=== PATIENT | female | born 1970 | race African-American/Black ===

== ENCOUNTER 2016-06-17 09:18 | Emergency (ER) | payer OTHER ==
[~2016-06-17 09:18] MED LIST: ASA5GR PO; HYDROCHLOROT25 MG OR; IRON325 MG PO; KLOR-CON M2020 MEQ PO; L40 PO; LOP25 PO; MICRO-K10 MEQ PO; PRIN10 PO; REMERON45 MG PO; SEROQUEL25 PO; [UNRECOGNIZED DRUG - OTHER] OR
== END 2016-06-17 11:00 | disposition home or self-care (01) ==
LOC: ER 09:18
DX: G47.00 Insomnia, unspecified (principal); I10 Essential (primary) hypertension; Z87.891 Personal history of nicotine dependence; Z88.5 Allergy status to narcotic agent; Z79.82 Long term (current) use of aspirin; Z79.899 Other long term (current) drug therapy
CPT/HCPCS: 93005; 99283

== ENCOUNTER 2016-06-18 08:45 | Emergency (ER) | payer OTHER ==
[2016-06-18 10:28] LABS: BASOPHILS 0.3 %; BASOPHILS ABSOLUTE 0.02 10/3/uL (0.0-0.16); EOSINOPHILS 3.4 %; ER CBC TAT 0 Hrs 08 Mins; HEMATOCRIT 40.8 % (36.0-48.0); HEMOGLOBIN 13.6 g/dL (12.0-16.0); IMMATURE GRANULOCYTES 0.2 %; IMMATURE GRANULOCYTES ABSOLUTE 0.01 10/3/uL (0.0-0.11); LYMPHOCYTES 42.1 %; LYMPHOCYTES ABSOLUTE 2.46 10/3/uL (0.67-4.30); MEAN CORPUS HGB CONC 33.3 g/dL (32.0-36.0); MEAN CORPUSCULAR HEMOGLOB 30.4 pg (26.0-34.0); MEAN CORPUSCULAR VOLUME 91.1 fL (80-100); MONOCYTES 6.8 %; NEUTROPHILS 47.2 %; NEUTROPHILS ABSOLUTE 2.76 10/3/uL (2.02-8.40); PLATELET COUNT 306 10/3/uL (150-400); RBC DISTRIBUTION WIDTH 12.8 % (12.0-16.0); RED CELL COUNT 4.48 10/6/uL (4.0-5.6); WHITE BLOOD CELLS 5.9 10/3/uL (4.5-10.5)
[2016-06-18 10:30] LABS: MANUAL DIFF NO %
[2016-06-18 10:43] LABS: A/G RATIO 0.8 (0.7-1.9); ALBUMIN 3.5 G/DL (3.5-5.0); ALKALINE PHOSPHATASE 98 U/L (45-117); BUN (BLOOD UREA NITROGEN) 12 MG/DL (6-23); CALCIUM, SERUM 9.4 MG/DL (8.5-10.4); CHLORIDE, SERUM 104 MMOL/L (96-112); CO2 (CARBON DIOXIDE) 32 MMOL/L (24-34); CREATININE 0.78 MG/DL (0.55-1.02); GFR AFRICAN AMERICAN 105 ML/MIN (>=60); GFR NON AFRICAN AMERICAN 91 ML/MIN (>=60); GLOBULIN 4.5 G/DL (2.5-4.1); GLUCOSE, SERUM 100 MG/DL (60-99); POTASSIUM, SERUM 3.9 MMOL/L (3.5-5.3); SGOT(AST) 12 U/L (5-40); SGPT(ALT) 23 U/L (5-65); SODIUM, SERUM 141 MMOL/L (135-148); TOTAL BILIRUBIN 0.4 MG/DL (0-1.2)
[2016-06-18 11:00] LABS: INFLUENZA A SCREEN NEGATIVE (NEGATIVE); INFLUENZA B SCREEN NEGATIVE (NEGATIVE)
[2016-06-18 13:33] LABS: ASCORBIC ACID (UR NOT ORDER) 20 (NEG); BILIRUBIN, URINE NEGATIVE (NEG); ER URINALYSIS TAT 0 Hrs 00 Mins; KETONE, URINE NEGATIVE (NEG); LEUKOCYTE ESTERASE(NOT OR SMALL (NEG); NITRITE (URINE) NEG (NEG); WBC (NOT ORDERED) (RFLEX) 28 (0-5)
== END 2016-06-18 13:24 | disposition home or self-care (01) ==
LOC: ER 08:45
PROVIDERS: Emergency Medicine
DX: R53.1 Weakness (principal); B34.9 Viral infection, unspecified; E11.9 Type 2 diabetes mellitus without complications; N30.90 Cystitis, unspecified without hematuria; I10 Essential (primary) hypertension; F41.9 Anxiety disorder, unspecified; F32.9 Major depressive disorder, single episode, unspecified; Z88.5 Allergy status to narcotic agent; Z79.82 Long term (current) use of aspirin; Z79.899 Other long term (current) drug therapy
CPT/HCPCS: 71010; 80053; 81001; 82962; 85025; 87070; 87077; 87086; 87186; 87804; 87880; 99285; J2405

== ENCOUNTER 2016-06-29 09:29 | Emergency (ER) | payer OTHER | END 2016-06-29 10:54 | disposition home or self-care (01) | LOC: ER 09:29 | DX: S46.912A Strain of unspecified muscle, fascia and tendon at shoulder and upper arm level, left arm, initial encounter (principal); I10 Essential (primary) hypertension; F20.9 Schizophrenia, unspecified; E11.9 Type 2 diabetes mellitus without complications; Z88.5 Allergy status to narcotic agent; Z79.82 Long term (current) use of aspirin; Z79.899 Other long term (current) drug therapy; X50.0XXA Overexertion from strenuous movement or load, initial encounter | CPT/HCPCS: 99283 ==

== ENCOUNTER 2016-07-01 08:44 | Emergency (ER) | payer OTHER ==
[2016-07-01 11:04] LABS: BASOPHILS 0.6 %; BASOPHILS ABSOLUTE 0.04 10/3/uL (0.0-0.16); EOSINOPHILS 3.5 %; EOSINOPHILS ABSOLUTE 0.25 10/3/uL (0.0-0.53); HEMATOCRIT 39.8 % (36.0-48.0); HEMOGLOBIN 13.1 g/dL (12.0-16.0); IMMATURE GRANULOCYTES 0.1 %; IMMATURE GRANULOCYTES ABSOLUTE 0.01 10/3/uL (0.0-0.11); LYMPHOCYTES 48.1 %; LYMPHOCYTES ABSOLUTE 3.41 10/3/uL (0.67-4.30); MANUAL DIFF NO %; MEAN CORPUS HGB CONC 32.9 g/dL (32.0-36.0); MEAN CORPUSCULAR HEMOGLOB 29.8 pg (26.0-34.0); MEAN CORPUSCULAR VOLUME 90.7 fL (80-100); MEAN PLATELET VOLUME 9.7 fL (9.2-13.0); MONOCYTES 7.2 %; MONOCYTES ABSOLUTE 0.51 10/3/uL (0.21-1.20); NEUTROPHILS 40.5 %; NEUTROPHILS ABSOLUTE 2.87 10/3/uL (2.02-8.40); PLATELET COUNT 290 10/3/uL (150-400); RBC DISTRIBUTION WIDTH 12.7 % (12.0-16.0); RED CELL COUNT 4.39 10/6/uL (4.0-5.6); WHITE BLOOD CELLS 7.1 10/3/uL (4.5-10.5)
[2016-07-01 11:11] LABS: INTERNATIONAL NORMAL RATI 1.2 UNITS (-); PARTIAL THROMBO TIME 33.7 SEC (22.5-37.2)
[2016-07-01 11:18] LABS: BUN (BLOOD UREA NITROGEN) 7 MG/DL (6-23); CALCIUM, SERUM 8.5 MG/DL (8.5-10.4); CHEST PAIN PROFILE TAT 0 Hrs 20 Mins; CHLORIDE, SERUM 106 MMOL/L (96-112); CO2 (CARBON DIOXIDE) 30 MMOL/L (24-34); CREATININE 0.72 MG/DL (0.55-1.02); GFR AFRICAN AMERICAN 116 ML/MIN (>=60); GFR NON AFRICAN AMERICAN 100 ML/MIN (>=60); GLUCOSE, SERUM 90 MG/DL (60-99); POTASSIUM, SERUM 3.8 MMOL/L (3.5-5.3); SODIUM, SERUM 143 MMOL/L (135-148); TROPONIN I <0.02 NG/ML (<0.05)
== END 2016-07-01 12:03 | disposition home or self-care (01) ==
LOC: ER 08:44
PROVIDERS: Hospitalist
DX: I10 Essential (primary) hypertension (principal); F41.9 Anxiety disorder, unspecified; F32.9 Major depressive disorder, single episode, unspecified; Z90.710 Acquired absence of both cervix and uterus; Z88.5 Allergy status to narcotic agent; Z79.82 Long term (current) use of aspirin; Z79.899 Other long term (current) drug therapy
CPT/HCPCS: 70450; 80048; 83735; 84484; 85025; 85610; 85730; 93005; 99285

== ENCOUNTER 2016-07-03 08:33 | Emergency (ER) | payer OTHER ==
[2016-07-03 08:48] LABS: BASOPHILS 0.6 %; BASOPHILS ABSOLUTE 0.03 10/3/uL (0.0-0.16); EOSINOPHILS 2.5 %; EOSINOPHILS ABSOLUTE 0.13 10/3/uL (0.0-0.53); ER CBC TAT 0 Hrs 07 Mins; HEMATOCRIT 36.7 % (36.0-48.0); HEMOGLOBIN 12.8 g/dL (12.0-16.0); IMMATURE GRANULOCYTES 0.2 %; IMMATURE GRANULOCYTES ABSOLUTE 0.01 10/3/uL (0.0-0.11); LYMPHOCYTES 47.8 %; LYMPHOCYTES ABSOLUTE 2.48 10/3/uL (0.67-4.30); MEAN CORPUSCULAR HEMOGLOB 30.8 pg (26.0-34.0); MEAN CORPUSCULAR VOLUME 88.2 fL (80-100); MEAN PLATELET VOLUME 9.4 fL (9.2-13.0); MONOCYTES 6.9 %; MONOCYTES ABSOLUTE 0.36 10/3/uL (0.21-1.20); NEUTROPHILS ABSOLUTE 2.18 10/3/uL (2.02-8.40); PLATELET COUNT 283 10/3/uL (150-400); RBC DISTRIBUTION WIDTH 12.8 % (12.0-16.0); RED CELL COUNT 4.16 10/6/uL (4.0-5.6); WHITE BLOOD CELLS 5.2 10/3/uL (4.5-10.5)
[2016-07-03 08:49] LABS: MANUAL DIFF NO %; MEAN CORPUS HGB CONC 34.9 g/dL (32.0-36.0)
[2016-07-03 08:56] LABS: ASCORBIC ACID (UR NOT ORDER) NEG (NEG); BILIRUBIN, URINE NEGATIVE (NEG); ER URINALYSIS TAT 0 Hrs 15 Mins; KETONE, URINE NEGATIVE (NEG); LEUKOCYTE ESTERASE(NOT OR NEG (NEG); NITRITE (URINE) NEG (NEG); WBC (NOT ORDERED) (RFLEX) 3 (0-5)
[2016-07-03 09:02] LABS: A/G RATIO 0.8 (0.7-1.9); ALBUMIN 3.2 G/DL (3.5-5.0); ALKALINE PHOSPHATASE 89 U/L (45-117); BUN (BLOOD UREA NITROGEN) 9 MG/DL (6-23); CALCIUM, SERUM 8.6 MG/DL (8.5-10.4); CHLORIDE, SERUM 105 MMOL/L (96-112); CO2 (CARBON DIOXIDE) 28 MMOL/L (24-34); CREATININE 0.84 MG/DL (0.55-1.02); GFR AFRICAN AMERICAN 96 ML/MIN (>=60); GFR NON AFRICAN AMERICAN 83 ML/MIN (>=60); GLOBULIN 3.9 G/DL (2.5-4.1); GLUCOSE, SERUM 93 MG/DL (60-99); POTASSIUM, SERUM 3.5 MMOL/L (3.5-5.3); SGOT(AST) 8 U/L (5-40); SGPT(ALT) 24 U/L (5-65); SODIUM, SERUM 143 MMOL/L (135-148); TOTAL BILIRUBIN 0.6 MG/DL (0-1.2); TOTAL PROTEIN 7.1 G/DL (6.0-8.5)
[2016-07-03 09:25] LABS: AMPHETAMINES (NOT ORD) NEG (NEG); BARBITURATES (NOT ORDERED NEG (NEG); BENZODIAZEPINES (NOT ORD) NEG (NEG); CANNABINOIDS (THC) NEG (NEG); COCAINE (NOT ORDERED) NEG (NEG); OPIATES NEG (NEG); PHENCYCLIDINE(PCP) NEG (NEG); TRICYCLICS NEG (NEG)
== END 2016-07-03 10:10 | disposition home or self-care (01) ==
LOC: ER 08:33
PROVIDERS: Emergency Medicine
DX: R51 Headache (principal); I10 Essential (primary) hypertension; F32.9 Major depressive disorder, single episode, unspecified; F41.9 Anxiety disorder, unspecified; F17.200 Nicotine dependence, unspecified, uncomplicated; Z88.5 Allergy status to narcotic agent; Z79.82 Long term (current) use of aspirin; Z79.899 Other long term (current) drug therapy
CPT/HCPCS: 80053; 80305; 81001; 85025; 96372; 99284; J1885; J2765

== ENCOUNTER 2016-07-05 08:51 | Emergency (ER) | payer OTHER | END 2016-07-05 09:00 | disposition home or self-care (01) | LOC: ER 08:51 | DX: R11.0 Nausea (principal); F41.9 Anxiety disorder, unspecified; I11.0 Hypertensive heart disease with heart failure; I50.9 Heart failure, unspecified; F32.9 Major depressive disorder, single episode, unspecified; F17.200 Nicotine dependence, unspecified, uncomplicated; Z88.5 Allergy status to narcotic agent; Z79.82 Long term (current) use of aspirin; Z79.899 Other long term (current) drug therapy | CPT/HCPCS: 93005; 99285 ==

== ENCOUNTER 2016-07-06 23:00 | Emergency (ER) | payer OTHER ==
[2016-07-06 21:04] LABS: BASOPHILS 0.5 %; BASOPHILS ABSOLUTE 0.04 10/3/uL (0.0-0.16); EOSINOPHILS 2.6 %; EOSINOPHILS ABSOLUTE 0.22 10/3/uL (0.0-0.53); HEMATOCRIT 36.9 % (36.0-48.0); HEMOGLOBIN 12.2 g/dL (12.0-16.0); IMMATURE GRANULOCYTES 0.1 %; IMMATURE GRANULOCYTES ABSOLUTE 0.01 10/3/uL (0.0-0.11); LYMPHOCYTES 48.6 %; LYMPHOCYTES ABSOLUTE 4.09 10/3/uL (0.67-4.30); MEAN CORPUSCULAR HEMOGLOB 29.8 pg (26.0-34.0); MEAN CORPUSCULAR VOLUME 90.2 fL (80-100); MEAN PLATELET VOLUME 9.8 fL (9.2-13.0); MONOCYTES ABSOLUTE 0.34 10/3/uL (0.21-1.20); NEUTROPHILS 44.2 %; NEUTROPHILS ABSOLUTE 3.71 10/3/uL (2.02-8.40); PLATELET COUNT 295 10/3/uL (150-400); RED CELL COUNT 4.09 10/6/uL (4.0-5.6)
[2016-07-06 21:05] LABS: ER CBC TAT 0 Hrs 07 Mins; MANUAL DIFF NO %; MEAN CORPUS HGB CONC 33.1 g/dL (32.0-36.0); WHITE BLOOD CELLS 8.4 10/3/uL (4.5-10.5)
[2016-07-06 21:08] LABS: ASCORBIC ACID (UR NOT ORDER) NEG (NEG); BILIRUBIN, URINE NEGATIVE (NEG); ER URINALYSIS TAT 0 Hrs 10 Mins; KETONE, URINE NEGATIVE (NEG); LEUKOCYTE ESTERASE(NOT OR SMALL (NEG); NITRITE (URINE) NEG (NEG); WBC (NOT ORDERED) (RFLEX) 4 (0-5)
[2016-07-06 21:12] LABS: INTERNATIONAL NORMAL RATI 1.3 UNITS (-)
[2016-07-06 21:19] LABS: BUN (BLOOD UREA NITROGEN) 11 MG/DL (6-23); CALCIUM, SERUM 8.9 MG/DL (8.5-10.4); CHEST PAIN PROFILE TAT 0 Hrs 21 Mins; CHLORIDE, SERUM 105 MMOL/L (96-112); CO2 (CARBON DIOXIDE) 29 MMOL/L (24-34); CREATININE 0.88 MG/DL (0.55-1.02); GFR AFRICAN AMERICAN 91 ML/MIN (>=60); GFR NON AFRICAN AMERICAN 78 ML/MIN (>=60); GLUCOSE, SERUM 111 MG/DL (60-99); POTASSIUM, SERUM 3.4 MMOL/L (3.5-5.3); SODIUM, SERUM 142 MMOL/L (135-148); TROPONIN I <0.02 NG/ML (<0.05)
== END 2016-07-07 01:32 | disposition home or self-care (01) ==
LOC: ER 23:00
PROVIDERS: Nurse Practitioner
DX: R42 Dizziness and giddiness (principal); I10 Essential (primary) hypertension; E11.9 Type 2 diabetes mellitus without complications; D64.9 Anemia, unspecified; F41.9 Anxiety disorder, unspecified; Z90.710 Acquired absence of both cervix and uterus; Z88.5 Allergy status to narcotic agent; Z79.82 Long term (current) use of aspirin; Z79.899 Other long term (current) drug therapy
CPT/HCPCS: 71020; 80048; 81001; 83735; 84484; 85025; 85610; 85730; 87077; 87086; 87186; 93005; 99284

== ENCOUNTER 2016-07-12 10:10 | Emergency (ER) | payer OTHER ==
[2016-07-12 10:27] LABS: BASOPHILS 0.3 %; BASOPHILS ABSOLUTE 0.02 10/3/uL (0.0-0.16); EOSINOPHILS 1.9 %; EOSINOPHILS ABSOLUTE 0.13 10/3/uL (0.0-0.53); HEMATOCRIT 35.8 % (36.0-48.0); HEMOGLOBIN 12.2 g/dL (12.0-16.0); IMMATURE GRANULOCYTES 0.1 %; IMMATURE GRANULOCYTES ABSOLUTE 0.01 10/3/uL (0.0-0.11); LYMPHOCYTES 40.3 %; LYMPHOCYTES ABSOLUTE 2.79 10/3/uL (0.67-4.30); MANUAL DIFF NO %; MEAN CORPUS HGB CONC 34.1 g/dL (32.0-36.0); MEAN CORPUSCULAR HEMOGLOB 30.2 pg (26.0-34.0); MEAN CORPUSCULAR VOLUME 88.6 fL (80-100); MEAN PLATELET VOLUME 9.6 fL (9.2-13.0); MONOCYTES 6.9 %; MONOCYTES ABSOLUTE 0.48 10/3/uL (0.21-1.20); NEUTROPHILS 50.5 %; NEUTROPHILS ABSOLUTE 3.49 10/3/uL (2.02-8.40); PLATELET COUNT 280 10/3/uL (150-400); RED CELL COUNT 4.04 10/6/uL (4.0-5.6); WHITE BLOOD CELLS 6.9 10/3/uL (4.5-10.5)
[2016-07-12 10:36] LABS: INTERNATIONAL NORMAL RATI 1.3 UNITS (-); PARTIAL THROMBO TIME 33.4 SEC (22.5-37.2); PROTIME (NOT ORD) 15.9 SEC (12.0-14.5)
[2016-07-12 10:49] LABS: BUN (BLOOD UREA NITROGEN) 8 MG/DL (6-23); CALCIUM, SERUM 8.7 MG/DL (8.5-10.4); CHEST PAIN PROFILE TAT 0 Hrs 26 Mins; CHLORIDE, SERUM 107 MMOL/L (96-112); CO2 (CARBON DIOXIDE) 26 MMOL/L (24-34); GFR AFRICAN AMERICAN 102 ML/MIN (>=60); GFR NON AFRICAN AMERICAN 88 ML/MIN (>=60); GLUCOSE, SERUM 115 MG/DL (60-99); POTASSIUM, SERUM 3.4 MMOL/L (3.5-5.3); SODIUM, SERUM 143 MMOL/L (135-148); TROPONIN I <0.02 NG/ML (<0.05)
== END 2016-07-12 11:31 | disposition home or self-care (01) ==
LOC: ER 10:10
PROVIDERS: Emergency Medicine
DX: R00.2 Palpitations (principal); R53.1 Weakness; F41.9 Anxiety disorder, unspecified; E11.9 Type 2 diabetes mellitus without complications; Z90.710 Acquired absence of both cervix and uterus; Z88.5 Allergy status to narcotic agent; Z79.82 Long term (current) use of aspirin; Z79.899 Other long term (current) drug therapy
CPT/HCPCS: 80048; 83735; 84443; 84484; 85025; 85610; 85730; 93005; 99285

== ENCOUNTER 2016-07-25 23:33 | Emergency (ER) | payer OTHER ==
[2016-07-25 22:03] LABS: ASCORBIC ACID (UR NOT ORDER) NEG (NEG); BILIRUBIN, URINE NEGATIVE (NEG); ER URINALYSIS TAT 0 Hrs 16 Mins; KETONE, URINE NEGATIVE (NEG); LEUKOCYTE ESTERASE(NOT OR TRACE (NEG); NITRITE (URINE) NEG (NEG); WBC (NOT ORDERED) (RFLEX) 5 (0-5)
[2016-07-25 22:04] LABS: BASOPHILS 0.5 %; BASOPHILS ABSOLUTE 0.05 10/3/uL (0.0-0.16); EOSINOPHILS 2.1 %; HEMATOCRIT 36.8 % (36.0-48.0); HEMOGLOBIN 12.2 g/dL (12.0-16.0); IMMATURE GRANULOCYTES 0.2 %; IMMATURE GRANULOCYTES ABSOLUTE 0.02 10/3/uL (0.0-0.11); LYMPHOCYTES 43.9 %; LYMPHOCYTES ABSOLUTE 4.26 10/3/uL (0.67-4.30); MEAN CORPUS HGB CONC 33.2 g/dL (32.0-36.0); MEAN CORPUSCULAR HEMOGLOB 29.8 pg (26.0-34.0); MEAN CORPUSCULAR VOLUME 89.8 fL (80-100); MEAN PLATELET VOLUME 9.7 fL (9.2-13.0); MONOCYTES ABSOLUTE 0.68 10/3/uL (0.21-1.20); NEUTROPHILS 46.3 %; PLATELET COUNT 271 10/3/uL (150-400)
[2016-07-25 22:06] LABS: MANUAL DIFF NO %; WHITE BLOOD CELLS 9.7 10/3/uL (4.5-10.5)
[2016-07-25 22:19] LABS: A/G RATIO 0.9 (0.7-1.9); ALBUMIN 3.4 G/DL (3.5-5.0); ALKALINE PHOSPHATASE 90 U/L (45-117); BUN (BLOOD UREA NITROGEN) 7 MG/DL (6-23); CALCIUM, SERUM 8.5 MG/DL (8.5-10.4); CHLORIDE, SERUM 107 MMOL/L (96-112); CO2 (CARBON DIOXIDE) 28 MMOL/L (24-34); CREATININE 0.71 MG/DL (0.55-1.02); GFR AFRICAN AMERICAN 118 ML/MIN (>=60); GFR NON AFRICAN AMERICAN 101 ML/MIN (>=60); GLOBULIN 3.9 G/DL (2.5-4.1); GLUCOSE, SERUM 95 MG/DL (60-99); POTASSIUM, SERUM 3.6 MMOL/L (3.5-5.3); SGOT(AST) 9 U/L (5-40); SGPT(ALT) 23 U/L (5-65); SODIUM, SERUM 143 MMOL/L (135-148); TOTAL BILIRUBIN 0.2 MG/DL (0-1.2); TOTAL PROTEIN 7.3 G/DL (6.0-8.5)
== END 2016-07-25 23:59 | disposition home or self-care (01) ==
LOC: ER 23:33
PROVIDERS: Emergency Medicine
DX: R60.0 Localized edema (principal); K08.89 Other specified disorders of teeth and supporting structures; I10 Essential (primary) hypertension; F32.9 Major depressive disorder, single episode, unspecified; F41.9 Anxiety disorder, unspecified; E11.9 Type 2 diabetes mellitus without complications; F17.200 Nicotine dependence, unspecified, uncomplicated; D64.9 Anemia, unspecified; Z88.5 Allergy status to narcotic agent; Z79.82 Long term (current) use of aspirin
CPT/HCPCS: 80053; 81001; 83690; 85025; 99285; A9270-GY

== ENCOUNTER 2016-07-29 10:10 | Emergency (ER) | payer OTHER ==
[2016-07-29 09:50] LABS: BASOPHILS 0.3 %; BASOPHILS ABSOLUTE 0.02 10/3/uL (0.0-0.16); EOSINOPHILS 2.3 %; EOSINOPHILS ABSOLUTE 0.14 10/3/uL (0.0-0.53); HEMATOCRIT 38.2 % (36.0-48.0); HEMOGLOBIN 12.8 g/dL (12.0-16.0); IMMATURE GRANULOCYTES 0.2 %; IMMATURE GRANULOCYTES ABSOLUTE 0.01 10/3/uL (0.0-0.11); LYMPHOCYTES 50.2 %; LYMPHOCYTES ABSOLUTE 3.03 10/3/uL (0.67-4.30); MANUAL DIFF NO %; MEAN CORPUS HGB CONC 33.5 g/dL (32.0-36.0); MEAN CORPUSCULAR VOLUME 89.5 fL (80-100); MEAN PLATELET VOLUME 9.7 fL (9.2-13.0); MONOCYTES ABSOLUTE 0.42 10/3/uL (0.21-1.20); NEUTROPHILS ABSOLUTE 2.42 10/3/uL (2.02-8.40); PLATELET COUNT 266 10/3/uL (150-400); RBC DISTRIBUTION WIDTH 12.7 % (12.0-16.0); RED CELL COUNT 4.27 10/6/uL (4.0-5.6)
[2016-07-29 10:19] LABS: BUN (BLOOD UREA NITROGEN) 8 MG/DL (6-23); CALCIUM, SERUM 8.8 MG/DL (8.5-10.4); CHLORIDE, SERUM 106 MMOL/L (96-112); CO2 (CARBON DIOXIDE) 28 MMOL/L (24-34); CREATININE 0.72 MG/DL (0.55-1.02); GFR AFRICAN AMERICAN 116 ML/MIN (>=60); GFR NON AFRICAN AMERICAN 100 ML/MIN (>=60); GLUCOSE, SERUM 119 MG/DL (60-99); POTASSIUM, SERUM 3.4 MMOL/L (3.5-5.3); SODIUM, SERUM 144 MMOL/L (135-148)
== END 2016-07-29 11:56 | disposition home or self-care (01) ==
LOC: ER 10:10
PROVIDERS: Nurse Practitioner Family
DX: J02.9 Acute pharyngitis, unspecified (principal); E87.6 Hypokalemia; E11.65 Type 2 diabetes mellitus with hyperglycemia; I10 Essential (primary) hypertension; F41.9 Anxiety disorder, unspecified; Z90.710 Acquired absence of both cervix and uterus; Z88.5 Allergy status to narcotic agent; Z79.82 Long term (current) use of aspirin; Z79.899 Other long term (current) drug therapy
CPT/HCPCS: 80048; 85025; 86308; 87070; 87880; 96372; 99283; A9270-GY

== ENCOUNTER 2016-08-03 12:16 | Emergency (ER) | payer OTHER | END 2016-08-03 12:35 | disposition home or self-care (01) | LOC: ER 12:16 | DX: K08.89 Other specified disorders of teeth and supporting structures (principal); I10 Essential (primary) hypertension; F32.9 Major depressive disorder, single episode, unspecified; F41.9 Anxiety disorder, unspecified; E11.9 Type 2 diabetes mellitus without complications; D64.9 Anemia, unspecified; Z87.891 Personal history of nicotine dependence; Z90.710 Acquired absence of both cervix and uterus; Z88.5 Allergy status to narcotic agent; Z79.82 Long term (current) use of aspirin; Z79.899 Other long term (current) drug therapy | CPT/HCPCS: 99282 ==

== ENCOUNTER 2016-08-10 12:34 | Emergency (ER) | payer OTHER | END 2016-08-10 12:45 | disposition home or self-care (01) | LOC: ER 12:34 | DX: K08.89 Other specified disorders of teeth and supporting structures (principal); Z87.891 Personal history of nicotine dependence; D64.9 Anemia, unspecified; F41.9 Anxiety disorder, unspecified; F32.9 Major depressive disorder, single episode, unspecified; I10 Essential (primary) hypertension; Z88.5 Allergy status to narcotic agent; Z79.899 Other long term (current) drug therapy; Z79.82 Long term (current) use of aspirin | CPT/HCPCS: 99283; A9270-GY ==

== ENCOUNTER 2016-08-12 23:17 | Emergency (ER) | payer OTHER | END 2016-08-13 00:09 | disposition home or self-care (01) | LOC: ER 23:17 | DX: K08.89 Other specified disorders of teeth and supporting structures (principal); F17.200 Nicotine dependence, unspecified, uncomplicated; I10 Essential (primary) hypertension; F41.9 Anxiety disorder, unspecified; F32.9 Major depressive disorder, single episode, unspecified; Z88.5 Allergy status to narcotic agent; Z79.899 Other long term (current) drug therapy; Z79.82 Long term (current) use of aspirin | CPT/HCPCS: 99283; A9270-GY ==

== ENCOUNTER 2016-08-13 14:10 | Emergency (ER) | payer OTHER | END 2016-08-13 19:56 | disposition home or self-care (01) | LOC: ER 14:10 | DX: K08.89 Other specified disorders of teeth and supporting structures (principal); F41.9 Anxiety disorder, unspecified; Z88.5 Allergy status to narcotic agent; Z79.82 Long term (current) use of aspirin; Z79.899 Other long term (current) drug therapy | CPT/HCPCS: 99283 ==

== ENCOUNTER 2016-08-14 18:35 | Emergency (ER) | payer OTHER | END 2016-08-14 21:07 | disposition home or self-care (01) | LOC: ER 18:35 | DX: K08.89 Other specified disorders of teeth and supporting structures (principal); E11.9 Type 2 diabetes mellitus without complications; I10 Essential (primary) hypertension; Z88.5 Allergy status to narcotic agent; Z79.82 Long term (current) use of aspirin | CPT/HCPCS: 93005; 99283 ==

== ENCOUNTER 2016-08-15 18:21 | Emergency (ER) | payer OTHER | END 2016-08-15 19:42 | disposition home or self-care (01) | LOC: ER 18:21 | DX: R00.2 Palpitations (principal); F41.9 Anxiety disorder, unspecified; I10 Essential (primary) hypertension; Z88.5 Allergy status to narcotic agent; Z79.899 Other long term (current) drug therapy; Z79.82 Long term (current) use of aspirin | CPT/HCPCS: 93005; 99284 ==

== ENCOUNTER 2016-08-17 16:03 | Emergency (ER) | payer OTHER ==
[2016-08-17 16:31] LABS: BASOPHILS 0.4 %; BASOPHILS ABSOLUTE 0.03 10/3/uL (0.0-0.16); EOSINOPHILS 1.7 %; EOSINOPHILS ABSOLUTE 0.13 10/3/uL (0.0-0.53); ER CBC TAT 0 Hrs 08 Mins; HEMATOCRIT 37.1 % (36.0-48.0); HEMOGLOBIN 12.6 g/dL (12.0-16.0); IMMATURE GRANULOCYTES 0.1 %; IMMATURE GRANULOCYTES ABSOLUTE 0.01 10/3/uL (0.0-0.11); LYMPHOCYTES 37.6 %; MEAN CORPUSCULAR VOLUME 88.3 fL (80-100); MEAN PLATELET VOLUME 9.7 fL (9.2-13.0); MONOCYTES 4.2 %; MONOCYTES ABSOLUTE 0.31 10/3/uL (0.21-1.20); NEUTROPHILS ABSOLUTE 4.16 10/3/uL (2.02-8.40); PLATELET COUNT 299 10/3/uL (150-400); WHITE BLOOD CELLS 7.4 10/3/uL (4.5-10.5)
[2016-08-17 16:32] LABS: MANUAL DIFF NO %
[2016-08-17 16:39] LABS: INTERNATIONAL NORMAL RATI 1.3 UNITS (-); PARTIAL THROMBO TIME 33.9 SEC (22.5-37.2); PROTIME (NOT ORD) 15.9 SEC (12.0-14.5)
[2016-08-17 16:43] LABS: BUN (BLOOD UREA NITROGEN) 8 MG/DL (6-23); CALCIUM, SERUM 9.2 MG/DL (8.5-10.4); CHEST PAIN PROFILE TAT 0 Hrs 20 Mins; CHLORIDE, SERUM 105 MMOL/L (96-112); CO2 (CARBON DIOXIDE) 30 MMOL/L (24-34); CREATININE 0.76 MG/DL (0.55-1.02); GFR AFRICAN AMERICAN 108 ML/MIN (>=60); GFR NON AFRICAN AMERICAN 93 ML/MIN (>=60); GLUCOSE, SERUM 100 MG/DL (60-99); POTASSIUM, SERUM 3.3 MMOL/L (3.5-5.3); SODIUM, SERUM 140 MMOL/L (135-148); TROPONIN I <0.02 NG/ML (<0.05)
== END 2016-08-17 17:29 | disposition home or self-care (01) ==
LOC: ER 16:03
PROVIDERS: Emergency Medicine
DX: F41.9 Anxiety disorder, unspecified (principal); I10 Essential (primary) hypertension; F32.9 Major depressive disorder, single episode, unspecified; Z90.710 Acquired absence of both cervix and uterus; Z88.5 Allergy status to narcotic agent; Z79.82 Long term (current) use of aspirin; Z79.899 Other long term (current) drug therapy
CPT/HCPCS: 71020; 80048; 83735; 84484; 85025; 85610; 85730; 93005; 99285; A9270-GY

== ENCOUNTER 2016-08-19 16:19 | Emergency (ER) | payer OTHER ==
[2016-08-19 18:48] LABS: BASOPHILS 0.5 %; BASOPHILS ABSOLUTE 0.04 10/3/uL (0.0-0.16); EOSINOPHILS 2.5 %; ER CBC TAT 0 Hrs 05 Mins; HEMATOCRIT 39.4 % (36.0-48.0); HEMOGLOBIN 13.1 g/dL (12.0-16.0); IMMATURE GRANULOCYTES 0.1 %; IMMATURE GRANULOCYTES ABSOLUTE 0.01 10/3/uL (0.0-0.11); LYMPHOCYTES 47.8 %; LYMPHOCYTES ABSOLUTE 3.85 10/3/uL (0.67-4.30); MEAN CORPUS HGB CONC 33.2 g/dL (32.0-36.0); MEAN CORPUSCULAR HEMOGLOB 29.6 pg (26.0-34.0); MEAN CORPUSCULAR VOLUME 88.9 fL (80-100); MONOCYTES 6.5 %; MONOCYTES ABSOLUTE 0.52 10/3/uL (0.21-1.20); NEUTROPHILS 42.6 %; NEUTROPHILS ABSOLUTE 3.43 10/3/uL (2.02-8.40); PLATELET COUNT 316 10/3/uL (150-400); RED CELL COUNT 4.43 10/6/uL (4.0-5.6); WHITE BLOOD CELLS 8.1 10/3/uL (4.5-10.5)
[2016-08-19 18:49] LABS: MANUAL DIFF NO %
[2016-08-19 18:58] LABS: INTERNATIONAL NORMAL RATI 1.2 UNITS (-); PARTIAL THROMBO TIME 28.1 SEC (22.5-37.2); PROTIME (NOT ORD) 15.2 SEC (12.0-14.5)
[2016-08-19 19:06] LABS: BUN (BLOOD UREA NITROGEN) 9 MG/DL (6-23); CALCIUM, SERUM 9.6 MG/DL (8.5-10.4); CHEST PAIN PROFILE TAT 0 Hrs 23 Mins; CHLORIDE, SERUM 107 MMOL/L (96-112); CO2 (CARBON DIOXIDE) 32 MMOL/L (24-34); CREATININE 0.81 MG/DL (0.55-1.02); GFR AFRICAN AMERICAN 100 ML/MIN (>=60); GFR NON AFRICAN AMERICAN 86 ML/MIN (>=60); GLUCOSE, SERUM 89 MG/DL (60-99); POTASSIUM, SERUM 3.5 MMOL/L (3.5-5.3); SODIUM, SERUM 142 MMOL/L (135-148); TROPONIN I <0.02 NG/ML (<0.05)
== END 2016-08-19 23:45 | disposition home or self-care (01) ==
LOC: ER 16:19
PROVIDERS: Nurse Practitioner Acute Care
DX: N39.0 Urinary tract infection, site not specified (principal); I10 Essential (primary) hypertension; F32.9 Major depressive disorder, single episode, unspecified; F41.9 Anxiety disorder, unspecified; E11.9 Type 2 diabetes mellitus without complications; D64.9 Anemia, unspecified; Z90.710 Acquired absence of both cervix and uterus; Z88.5 Allergy status to narcotic agent; Z79.82 Long term (current) use of aspirin; Z79.899 Other long term (current) drug therapy
CPT/HCPCS: 71020; 80048; 83735; 84484; 85025; 85610; 85730; 99283; A9270-GY

== ENCOUNTER 2016-08-20 23:05 | Emergency (ER) | payer OTHER ==
[2016-08-20 21:33] LABS: BASOPHILS 0.4 %; BASOPHILS ABSOLUTE 0.03 10/3/uL (0.0-0.16); EOSINOPHILS 2.4 %; ER CBC TAT 0 Hrs 05 Mins; HEMATOCRIT 38.3 % (36.0-48.0); HEMOGLOBIN 12.8 g/dL (12.0-16.0); IMMATURE GRANULOCYTES 0.2 %; IMMATURE GRANULOCYTES ABSOLUTE 0.02 10/3/uL (0.0-0.11); LYMPHOCYTES 46.7 %; LYMPHOCYTES ABSOLUTE 3.95 10/3/uL (0.67-4.30); MEAN CORPUS HGB CONC 33.4 g/dL (32.0-36.0); MEAN CORPUSCULAR HEMOGLOB 29.6 pg (26.0-34.0); MEAN CORPUSCULAR VOLUME 88.7 fL (80-100); MEAN PLATELET VOLUME 9.8 fL (9.2-13.0); MONOCYTES 4.9 %; MONOCYTES ABSOLUTE 0.41 10/3/uL (0.21-1.20); NEUTROPHILS 45.4 %; NEUTROPHILS ABSOLUTE 3.84 10/3/uL (2.02-8.40); PLATELET COUNT 321 10/3/uL (150-400); RED CELL COUNT 4.32 10/6/uL (4.0-5.6); WHITE BLOOD CELLS 8.5 10/3/uL (4.5-10.5)
[2016-08-20 21:34] LABS: MANUAL DIFF NO %
[2016-08-20 21:39] LABS: INTERNATIONAL NORMAL RATI 1.2 UNITS (-); PARTIAL THROMBO TIME 33.1 SEC (22.5-37.2); PROTIME (NOT ORD) 14.7 SEC (12.0-14.5)
[2016-08-20 21:52] LABS: BUN (BLOOD UREA NITROGEN) 11 MG/DL (6-23); CALCIUM, SERUM 9.2 MG/DL (8.5-10.4); CHEST PAIN PROFILE TAT 0 Hrs 24 Mins; CHLORIDE, SERUM 107 MMOL/L (96-112); CO2 (CARBON DIOXIDE) 31 MMOL/L (24-34); CREATININE 0.91 MG/DL (0.55-1.02); GFR AFRICAN AMERICAN 87 ML/MIN (>=60); GFR NON AFRICAN AMERICAN 75 ML/MIN (>=60); GLUCOSE, SERUM 98 MG/DL (60-99); POTASSIUM, SERUM 3.4 MMOL/L (3.5-5.3); SODIUM, SERUM 143 MMOL/L (135-148); TROPONIN I <0.02 NG/ML (<0.05)
== END 2016-08-21 01:00 | disposition left against medical advice (07) ==
LOC: ER 23:05
PROVIDERS: Hospitalist
DX: I10 Essential (primary) hypertension (principal); Z53.21 Procedure and treatment not carried out due to patient leaving prior to being seen by health care provider
CPT/HCPCS: 71020; 80048; 83735; 83880; 84484; 85025; 85610; 85730; 93005

== ENCOUNTER 2016-08-21 04:13 | Emergency (ER) | payer OTHER | END 2016-08-21 04:22 | disposition home or self-care (01) | LOC: ER 04:13 | DX: R60.0 Localized edema (principal); G47.00 Insomnia, unspecified; I10 Essential (primary) hypertension; F41.9 Anxiety disorder, unspecified; F20.9 Schizophrenia, unspecified; Z90.710 Acquired absence of both cervix and uterus; Z88.5 Allergy status to narcotic agent; Z79.82 Long term (current) use of aspirin; Z79.899 Other long term (current) drug therapy | CPT/HCPCS: 99283; A9270-GY ==

== ENCOUNTER 2016-08-21 22:02 | Emergency (ER) | payer OTHER | END 2016-08-22 00:38 | disposition left against medical advice (07) | LOC: ER 22:02 | DX: Z53.21 Procedure and treatment not carried out due to patient leaving prior to being seen by health care provider (principal); Z88.5 Allergy status to narcotic agent; Z79.82 Long term (current) use of aspirin | CPT/HCPCS: 80048; 82962; 83735; 84484; 85025; 85610; 85730; 93005 ==

== ENCOUNTER 2016-08-22 16:17 | Emergency (ER) | payer OTHER | END 2016-08-22 16:53 | disposition home or self-care (01) | LOC: ER 16:17 | DX: F45.8 Other somatoform disorders (principal); Z88.5 Allergy status to narcotic agent; Z79.82 Long term (current) use of aspirin | CPT/HCPCS: 93005; 99284; A9270-GY ==

== ENCOUNTER 2016-08-23 02:20 | Emergency (ER) | payer OTHER ==
[2016-08-23 03:06] LABS: BASOPHILS 0.3 %; BASOPHILS ABSOLUTE 0.02 10/3/uL (0.0-0.16); EOSINOPHILS 2.2 %; EOSINOPHILS ABSOLUTE 0.17 10/3/uL (0.0-0.53); HEMATOCRIT 36.1 % (36.0-48.0); HEMOGLOBIN 12.2 g/dL (12.0-16.0); LYMPHOCYTES 46.8 %; LYMPHOCYTES ABSOLUTE 3.58 10/3/uL (0.67-4.30); MEAN CORPUS HGB CONC 33.8 g/dL (32.0-36.0); MEAN CORPUSCULAR VOLUME 88.9 fL (80-100); MEAN PLATELET VOLUME 9.8 fL (9.2-13.0); MONOCYTES 5.9 %; MONOCYTES ABSOLUTE 0.45 10/3/uL (0.21-1.20); NEUTROPHILS 44.8 %; NEUTROPHILS ABSOLUTE 3.43 10/3/uL (2.02-8.40); PLATELET COUNT 298 10/3/uL (150-400); RBC DISTRIBUTION WIDTH 13.1 % (12.0-16.0); RED CELL COUNT 4.06 10/6/uL (4.0-5.6); WHITE BLOOD CELLS 7.7 10/3/uL (4.5-10.5)
[2016-08-23 03:07] LABS: ER CBC TAT 0 Hrs 06 MinsNP; MANUAL DIFF NO %
[2016-08-23 03:12] LABS: INTERNATIONAL NORMAL RATI 1.3 UNITS (-); PARTIAL THROMBO TIME 36.6 SEC (22.5-37.2); PROTIME (NOT ORD) 15.9 SEC (12.0-14.5)
[2016-08-23 03:24] LABS: BUN (BLOOD UREA NITROGEN) 8 MG/DL (6-23); CALCIUM, SERUM 9.1 MG/DL (8.5-10.4); CHEST PAIN PROFILE TAT 0 Hrs 24 Mins; CHLORIDE, SERUM 106 MMOL/L (96-112); CO2 (CARBON DIOXIDE) 31 MMOL/L (24-34); GFR AFRICAN AMERICAN 102 ML/MIN (>=60); GFR NON AFRICAN AMERICAN 88 ML/MIN (>=60); GLUCOSE, SERUM 107 MG/DL (60-99); POTASSIUM, SERUM 3.5 MMOL/L (3.5-5.3); SODIUM, SERUM 143 MMOL/L (135-148); TROPONIN I <0.02 NG/ML (<0.05)
== END 2016-08-23 04:18 | disposition home or self-care (01) ==
LOC: ER 02:20
PROVIDERS: Emergency Medicine
DX: K21.9 Gastro-esophageal reflux disease without esophagitis (principal); I10 Essential (primary) hypertension; F32.9 Major depressive disorder, single episode, unspecified; F41.9 Anxiety disorder, unspecified; F17.200 Nicotine dependence, unspecified, uncomplicated; Z88.5 Allergy status to narcotic agent; Z79.82 Long term (current) use of aspirin
CPT/HCPCS: 71010; 80048; 83735; 84484; 85025; 85610; 85730; 93005; 99285; A9270-GY

== ENCOUNTER 2016-08-25 18:02 | Emergency (ER) | payer OTHER ==
[2016-08-25 16:52] LABS: BASOPHILS 0.4 %; BASOPHILS ABSOLUTE 0.03 10/3/uL (0.0-0.16); EOSINOPHILS 2.4 %; EOSINOPHILS ABSOLUTE 0.18 10/3/uL (0.0-0.53); ER CBC TAT 0 Hrs 05 Mins; HEMATOCRIT 37.3 % (36.0-48.0); HEMOGLOBIN 12.4 g/dL (12.0-16.0); IMMATURE GRANULOCYTES 0.1 %; IMMATURE GRANULOCYTES ABSOLUTE 0.01 10/3/uL (0.0-0.11); LYMPHOCYTES 35.5 %; LYMPHOCYTES ABSOLUTE 2.62 10/3/uL (0.67-4.30); MEAN CORPUS HGB CONC 33.2 g/dL (32.0-36.0); MEAN CORPUSCULAR VOLUME 90.1 fL (80-100); MEAN PLATELET VOLUME 9.8 fL (9.2-13.0); MONOCYTES 7.2 %; MONOCYTES ABSOLUTE 0.53 10/3/uL (0.21-1.20); NEUTROPHILS 54.4 %; NEUTROPHILS ABSOLUTE 4.02 10/3/uL (2.02-8.40); PLATELET COUNT 277 10/3/uL (150-400); RBC DISTRIBUTION WIDTH 13.1 % (12.0-16.0); RED CELL COUNT 4.14 10/6/uL (4.0-5.6); WHITE BLOOD CELLS 7.4 10/3/uL (4.5-10.5)
[2016-08-25 16:53] LABS: MANUAL DIFF NO %
[2016-08-25 16:59] LABS: INTERNATIONAL NORMAL RATI 1.2 UNITS (-); PROTIME (NOT ORD) 15.5 SEC (12.0-14.5)
[2016-08-25 17:12] LABS: BUN (BLOOD UREA NITROGEN) 9 MG/DL (6-23); CALCIUM, SERUM 9.5 MG/DL (8.5-10.4); CHEST PAIN PROFILE TAT 0 Hrs 25 Mins; CHLORIDE, SERUM 103 MMOL/L (96-112); CO2 (CARBON DIOXIDE) 32 MMOL/L (24-34); CREATININE 0.85 MG/DL (0.55-1.02); GFR AFRICAN AMERICAN 95 ML/MIN (>=60); GFR NON AFRICAN AMERICAN 82 ML/MIN (>=60); GLUCOSE, SERUM 102 MG/DL (60-99); POTASSIUM, SERUM 3.4 MMOL/L (3.5-5.3); SODIUM, SERUM 137 MMOL/L (135-148); TROPONIN I <0.02 NG/ML (<0.05)
[2016-08-25 17:29] LABS: WBC (NOT ORDERED) (RFLEX) 0 (0-5)
[2016-08-25 17:42] LABS: ASCORBIC ACID (UR NOT ORDER) NEG (NEG); BILIRUBIN, URINE NEGATIVE (NEG); ER URINALYSIS TAT 0 Hrs 15 Mins; KETONE, URINE NEGATIVE (NEG); LEUKOCYTE ESTERASE(NOT OR NEG (NEG); NITRITE (URINE) NEG (NEG)
== END 2016-08-25 18:46 | disposition home or self-care (01) ==
LOC: ER 18:02
PROVIDERS: Physician Assistant
DX: I10 Essential (primary) hypertension (principal); F20.9 Schizophrenia, unspecified; F32.9 Major depressive disorder, single episode, unspecified; E11.9 Type 2 diabetes mellitus without complications; Z90.710 Acquired absence of both cervix and uterus; Z90.49 Acquired absence of other specified parts of digestive tract; Z88.5 Allergy status to narcotic agent; Z79.82 Long term (current) use of aspirin; Z79.899 Other long term (current) drug therapy
CPT/HCPCS: 71020; 80048; 81001; 83735; 84484; 85025; 85610; 85730; 93005; 99284; A9270-GY

== ENCOUNTER 2016-08-27 20:18 | Emergency (ER) | payer OTHER | END 2016-08-27 20:50 | disposition home or self-care (01) | LOC: ER 20:18 | DX: I10 Essential (primary) hypertension (principal); Z88.5 Allergy status to narcotic agent; Z79.82 Long term (current) use of aspirin | CPT/HCPCS: 99283; A9270-GY ==

== ENCOUNTER 2016-09-04 16:12 | Emergency (ER) | payer OTHER | END 2016-09-04 17:47 | disposition home or self-care (01) | LOC: ER 16:12 | DX: I10 Essential (primary) hypertension (principal); F32.9 Major depressive disorder, single episode, unspecified; F41.9 Anxiety disorder, unspecified; E11.9 Type 2 diabetes mellitus without complications; F17.200 Nicotine dependence, unspecified, uncomplicated; Z90.710 Acquired absence of both cervix and uterus; Z88.5 Allergy status to narcotic agent; Z79.82 Long term (current) use of aspirin; Z79.899 Other long term (current) drug therapy | CPT/HCPCS: 82962; 93005; 99283 ==

== ENCOUNTER 2016-09-06 18:46 | Emergency (ER) | payer OTHER | END 2016-09-06 19:00 | disposition home or self-care (01) | LOC: ER 18:46 | DX: F41.9 Anxiety disorder, unspecified (principal); I10 Essential (primary) hypertension; F32.9 Major depressive disorder, single episode, unspecified; F20.9 Schizophrenia, unspecified; E11.9 Type 2 diabetes mellitus without complications; Z90.710 Acquired absence of both cervix and uterus; Z88.5 Allergy status to narcotic agent; Z79.82 Long term (current) use of aspirin; Z79.899 Other long term (current) drug therapy | CPT/HCPCS: 99283 ==

== ENCOUNTER 2016-09-09 10:00 | Emergency (ER) | payer OTHER | END 2016-09-09 10:25 | disposition home or self-care (01) | LOC: ER 10:00 | DX: G47.00 Insomnia, unspecified (principal); H10.13 Acute atopic conjunctivitis, bilateral; I10 Essential (primary) hypertension; F41.9 Anxiety disorder, unspecified; F32.9 Major depressive disorder, single episode, unspecified; F20.9 Schizophrenia, unspecified; E11.9 Type 2 diabetes mellitus without complications; Z88.5 Allergy status to narcotic agent; Z79.82 Long term (current) use of aspirin; Z79.899 Other long term (current) drug therapy | CPT/HCPCS: 99283 ==

== ENCOUNTER 2016-09-10 11:09 | Emergency (ER) | payer OTHER | END 2016-09-10 11:12 | disposition home or self-care (01) | LOC: ER 11:09 | DX: K59.00 Constipation, unspecified (principal); I10 Essential (primary) hypertension; Z88.5 Allergy status to narcotic agent; Z79.82 Long term (current) use of aspirin; Z79.899 Other long term (current) drug therapy | CPT/HCPCS: 99283 ==

== ENCOUNTER 2016-09-17 17:00 | Emergency (ER) | payer OTHER | END 2016-09-17 18:36 | disposition home or self-care (01) | LOC: ER 17:00 | DX: I10 Essential (primary) hypertension (principal); F32.9 Major depressive disorder, single episode, unspecified; F41.9 Anxiety disorder, unspecified; Z90.710 Acquired absence of both cervix and uterus; Z88.5 Allergy status to narcotic agent; Z79.899 Other long term (current) drug therapy; Z79.82 Long term (current) use of aspirin | CPT/HCPCS: 99283 ==

== ENCOUNTER 2016-09-18 15:16 | Emergency (ER) | payer OTHER | END 2016-09-18 15:22 | disposition home or self-care (01) | LOC: ER 15:16 | DX: G47.9 Sleep disorder, unspecified (principal); I10 Essential (primary) hypertension; F32.9 Major depressive disorder, single episode, unspecified; F41.9 Anxiety disorder, unspecified; Z88.5 Allergy status to narcotic agent; Z79.82 Long term (current) use of aspirin; Z79.899 Other long term (current) drug therapy | CPT/HCPCS: 99283 ==

== ENCOUNTER 2016-09-24 14:15 | Emergency (ER) | payer OTHER | END 2016-09-24 14:18 | disposition home or self-care (01) | LOC: ER 14:15 | DX: R10.9 Unspecified abdominal pain (principal); I10 Essential (primary) hypertension; E11.9 Type 2 diabetes mellitus without complications; Z88.5 Allergy status to narcotic agent; Z79.82 Long term (current) use of aspirin; Z79.899 Other long term (current) drug therapy | CPT/HCPCS: 93005; 99284 ==

== ENCOUNTER 2016-09-27 19:54 | Emergency (ER) | payer OTHER ==
[2016-09-27 20:41] LABS: BASOPHILS 0.3 %; BASOPHILS ABSOLUTE 0.03 10/3/uL (0.0-0.16); EOSINOPHILS 2.1 %; HEMATOCRIT 37.5 % (36.0-48.0); HEMOGLOBIN 12.4 g/dL (12.0-16.0); IMMATURE GRANULOCYTES 0.1 %; IMMATURE GRANULOCYTES ABSOLUTE 0.01 10/3/uL (0.0-0.11); LYMPHOCYTES 36.5 %; LYMPHOCYTES ABSOLUTE 3.49 10/3/uL (0.67-4.30); MANUAL DIFF NO %; MEAN CORPUS HGB CONC 33.1 g/dL (32.0-36.0); MEAN CORPUSCULAR HEMOGLOB 29.5 pg (26.0-34.0); MEAN CORPUSCULAR VOLUME 89.3 fL (80-100); MONOCYTES 5.8 %; MONOCYTES ABSOLUTE 0.55 10/3/uL (0.21-1.20); NEUTROPHILS 55.2 %; NEUTROPHILS ABSOLUTE 5.28 10/3/uL (2.02-8.40); PLATELET COUNT 261 10/3/uL (150-400); RBC DISTRIBUTION WIDTH 13.2 % (12.0-16.0); WHITE BLOOD CELLS 9.6 10/3/uL (4.5-10.5)
[2016-09-27 20:56] LABS: A/G RATIO 0.9 (0.7-1.9); ALBUMIN 3.5 G/DL (3.5-5.0); ALKALINE PHOSPHATASE 92 U/L (45-117); BUN (BLOOD UREA NITROGEN) 7 MG/DL (6-23); CALCIUM, SERUM 8.9 MG/DL (8.5-10.4); CHLORIDE, SERUM 109 MMOL/L (96-112); CO2 (CARBON DIOXIDE) 29 MMOL/L (24-34); CREATININE 0.83 MG/DL (0.55-1.02); GFR AFRICAN AMERICAN 97 ML/MIN (>=60); GFR NON AFRICAN AMERICAN 84 ML/MIN (>=60); GLUCOSE, SERUM 102 MG/DL (60-99); SGOT(AST) 12 U/L (5-40); SGPT(ALT) 24 U/L (5-65); TOTAL BILIRUBIN 0.3 MG/DL (0-1.2); TOTAL PROTEIN 7.5 G/DL (6.0-8.5)
[2016-09-27 20:57] LABS: SODIUM, SERUM 144 MMOL/L (135-148)
== END 2016-09-27 21:27 | disposition home or self-care (01) ==
LOC: ER 19:54
PROVIDERS: Physician Assistant
DX: R11.2 Nausea with vomiting, unspecified (principal); E87.6 Hypokalemia; I10 Essential (primary) hypertension; F32.9 Major depressive disorder, single episode, unspecified; F41.9 Anxiety disorder, unspecified; F17.200 Nicotine dependence, unspecified, uncomplicated; Z88.5 Allergy status to narcotic agent; Z79.82 Long term (current) use of aspirin
CPT/HCPCS: 80053; 83690; 85025; 93005; 99284; A9270-GY

== ENCOUNTER 2016-10-01 19:00 | Emergency (ER) | payer OTHER | END 2016-10-01 19:30 | disposition home or self-care (01) | LOC: ER 19:00 | DX: M25.552 Pain in left hip (principal); I10 Essential (primary) hypertension; F20.9 Schizophrenia, unspecified; Z88.5 Allergy status to narcotic agent; Z79.82 Long term (current) use of aspirin; Z79.899 Other long term (current) drug therapy | CPT/HCPCS: 99283 ==